=== PATIENT | female | born 1935 | race African-American/Black ===

== ENCOUNTER 2019-09-10 23:14 | Inpatient (IN) | payer BC ==
[~2019-09-10] VITALS: Ht 152.4 cm; Wt 58.1 kg
[2019-09-10 23:58] LABS: BASOPHILS % (AUTO) 0.1 % (0.0-2.0); EOSINOPHILS # (AUTO) 0.1 K/uL (0-0.4); EOSINOPHILS % (AUTO) 0.7 % (0.0-4.0); HEMATOCRIT 32.9 % (36-48); HEMOGLOBIN 10.1 g/dL (12.0-16.0); LYMPHOCYTES # (AUTO) 0.5 K/uL (2.5-16.5); MEAN CORPUSCULAR HEMOGLOBIN 23 pg (27-31); MEAN CORPUSCULAR HGB CONC 31 g/dL (33-37); MEAN CORPUSCULAR VOLUME 75.4 fL (80-94); MONOCYTES # (AUTO) 0.4 K/uL (0.8-1.0); MONOCYTES % (AUTO) 2.8 % (1.7-9.3); NEUTROPHILS # (AUTO) 13.7 K/uL (1.8-7.7); NEUTROPHILS % (AUTO) 92.9 % (42.2-75.2); PLATELET COUNT (AUTO) 366 K/uL (140-450); RED BLOOD CELL COUNT(AUTO) 4.36 MIL/uL (4.20-5.40); RED CELL DISTRIBUTION WIDTH 19.6 % (11.6-13.7); WHITE BLOOD COUNT (AUTO) 14.8 K/uL (4.8-10.8)
[2019-09-11] MEDS ORDERED: ONDANSETRON 4 MG ODT PO ONE (00:10)
[2019-09-11] MEDS ORDERED: HYDROcodone/APAP 5/325 MG 1 TAB TAB PO ONE (00:10)
[2019-09-11 00:13] LABS: ALBUMIN 1.9 g/dL (3.4-5.0); ANION GAP 10.9 (8-16); ASPARTATE AMINOTRANSFERASE 12 U/L (15-37); CARBON DIOXIDE 33.6 mmol/L (21-32); CHLORIDE 102 mmol/L (98-107); POTASSIUM 4.5 mmol/L (3.5-5.1); SODIUM SERUM 142 mmol/L (136-145); TOTAL BILIRUBIN 0.5 mg/dL (0.0-1.0); UREA NITROGEN, BLOOD 15 mg/dL (7-18)
[2019-09-11 00:15] LABS: LYMPHOCYTES % (AUTO) 3.5 % (20.5-51.1)
[2019-09-11 00:20] LABS: GLUCOSE 452 mg/dL (74-106)
[2019-09-11] MEDS ORDERED: INSULIN REGULAR, HUMAN 100 UNIT/ML VIAL IVP ONE (00:30)
[2019-09-11] MEDS ORDERED: MULT-153 PO (01:31)
[2019-09-11] MEDS ORDERED: FERR-252 PO (01:31)
[2019-09-11] MEDS ORDERED: ASPI-1822 PO (01:31)
[2019-09-11] MEDS ORDERED: LOVA20TA8 PO (01:31)
[2019-09-11] MEDS ORDERED: ONDANSETRON 4 MG/2 ML VIAL IVP PRN (01:35)
[2019-09-11] MEDS ORDERED: MORPHINE SULFATE 4 MG/ML SYR IVP PRN (01:35)
[2019-09-11] MEDS ORDERED: hydrALAZINE 20 MG/ML VIAL IVP PRN (01:40)
[2019-09-11] MEDS ORDERED: PRON INH (01:48)
[2019-09-11 02:50] VITALS: BP 122/65
[2019-09-11] MEDS ORDERED: PIPERACILLIN/TAZOBACTAM 2.25 GM VIAL IV ONE (03:20)
[2019-09-11] MEDS: PIPERACILLIN/TAZOBACTAM 2.25 GM in DEXTROSE 5% 50 ML IV SCH ×3 (03:38→21:47)
[2019-09-11 06:15] LABS: BASOPHILS % (AUTO) 0.1 % (0.0-2.0); EOSINOPHILS % (AUTO) 0.1 % (0.0-4.0); HEMATOCRIT 28.9 % (36-48); HEMOGLOBIN 8.7 g/dL (12.0-16.0); LYMPHOCYTES # (AUTO) 0.8 K/uL (2.5-16.5); LYMPHOCYTES % (AUTO) 6.7 % (20.5-51.1); MEAN CORPUSCULAR HEMOGLOBIN 23 pg (27-31); MEAN CORPUSCULAR HGB CONC 30 g/dL (33-37); MEAN CORPUSCULAR VOLUME 75.5 fL (80-94); MONOCYTES # (AUTO) 0.8 K/uL (0.8-1.0); MONOCYTES % (AUTO) 6.8 % (1.7-9.3); NEUTROPHILS # (AUTO) 9.7 K/uL (1.8-7.7); NEUTROPHILS % (AUTO) 86.3 % (42.2-75.2); PLATELET COUNT (AUTO) 283 K/uL (140-450); RED BLOOD CELL COUNT(AUTO) 3.83 MIL/uL (4.20-5.40); RED CELL DISTRIBUTION WIDTH 19.6 % (11.6-13.7); WHITE BLOOD COUNT (AUTO) 11.2 K/uL (4.8-10.8)
[2019-09-11 06:16] LABS: ANION GAP 8.2 (8-16); CARBON DIOXIDE 36.3 mmol/L (21-32); CHLORIDE 105 mmol/L (98-107); CREATININE 0.9 mg/dL (0.6-1.3); GLUCOSE 217 mg/dL (74-106); POTASSIUM 4.5 mmol/L (3.5-5.1); SODIUM SERUM 145 mmol/L (136-145); UREA NITROGEN, BLOOD 15 mg/dL (7-18)
[2019-09-11 06:20] LABS: PROTHROMBIN TIME 11.8 secs (10.8-13.4)
[2019-09-11 08:00] VITALS: BP 125/59
[2019-09-11] MEDS: FERROUS SULFATE 325 MG TABEC PO SCH (08:47)
[2019-09-11] MEDS: MULTIVITAMIN 1 TAB PO SCH (08:47)
[2019-09-11 12:00] VITALS: BP 128/63
[2019-09-11 16:00] VITALS: BP 120/57
[2019-09-11] MEDS: ACETAMINOPHEN 325 MG TAB PO PRN (18:36)
[2019-09-11 20:00] VITALS: BP 121/54
[2019-09-11] MEDS ORDERED: LOVASTATIN 20 MG PO SCH (21:00)
[2019-09-11] MEDS: SIMVASTATIN 10 MG TAB PO SCH (21:48)
[2019-09-12] VITALS: BP 127/60
[2019-09-12] MEDS: PIPERACILLIN/TAZOBACTAM 2.25 GM in DEXTROSE 5% 50 ML IV SCH ×3 (04:52→21:47)
[2019-09-12 05:44] VITALS: BP 169/63
[2019-09-12] MEDS: HYDROcodone/APAP 5/325 MG 1 TAB TAB PO PRN (05:51)
[2019-09-12 07:13] LABS: HEMATOCRIT 30.9 % (36-48); HEMOGLOBIN 9.3 g/dL (12.0-16.0); MEAN CORPUSCULAR HEMOGLOBIN 23 pg (27-31); MEAN CORPUSCULAR HGB CONC 30 g/dL (33-37); MEAN CORPUSCULAR VOLUME 76.8 fL (80-94); PLATELET COUNT (AUTO) 310 K/uL (140-450); RED BLOOD CELL COUNT(AUTO) 4.03 MIL/uL (4.20-5.40); RED CELL DISTRIBUTION WIDTH 20.1 % (11.6-13.7); WHITE BLOOD COUNT (AUTO) 11.3 K/uL (4.8-10.8)
[2019-09-12] MEDS: ALBUTEROL 0.083% 2.5 MG/3 ML NEBU INH PRN ×2 (07:28→14:16)
[2019-09-12 07:32] LABS: CREATININE 0.9 mg/dL (0.6-1.3); GLUCOSE 269 mg/dL (74-106); UREA NITROGEN, BLOOD 16 mg/dL (7-18)
[2019-09-12 07:39] LABS: MAGNESIUM 1.7 mg/dL (1.8-2.4); PHOSPHORUS 3.2 mg/dL (2.5-4.9)
[2019-09-12 07:54] LABS: ANION GAP 7.3 (8-16); CHLORIDE 101 mmol/L (98-107); POTASSIUM 4.3 mmol/L (3.5-5.1); SODIUM SERUM 141 mmol/L (136-145)
[2019-09-12 08:00] VITALS: BP 98/60
[2019-09-12 08:08] LABS: LYMPHOCYTES % (MANUAL) 5 % (20-46); MONOCYTES % (MANUAL) 5 % (5-12)
[2019-09-12 08:09] LABS: EOSINOPHILS % (MANUAL) 2 % (0-4)
[2019-09-12] MEDS: MULTIVITAMIN 1 TAB PO SCH (10:20)
[2019-09-12] MEDS: FERROUS SULFATE 325 MG TABEC PO SCH (10:20)
[2019-09-12 12:00] VITALS: BP 123/66
[2019-09-12] MEDS ORDERED: MAGNESIUM OXIDE 400 MG TAB PO SCH (12:00)
[2019-09-12 16:00] VITALS: BP 110/65
[2019-09-12 20:00] VITALS: BP 95/48
[2019-09-12] MEDS: SIMVASTATIN 10 MG TAB PO SCH (21:46)
[2019-09-13] VITALS: BP 105/58
[2019-09-13] MEDS: ACETAMINOPHEN 325 MG TAB PO PRN (01:40)
[2019-09-13 04:00] VITALS: BP 110/55
[2019-09-13] MEDS: PIPERACILLIN/TAZOBACTAM 2.25 GM in DEXTROSE 5% 50 ML IV SCH ×3 (05:34→20:45)
[2019-09-13 06:20] LABS: BASOPHILS % (AUTO) 0.4 % (0.0-2.0); EOSINOPHILS # (AUTO) 0.1 K/uL (0-0.4); EOSINOPHILS % (AUTO) 0.6 % (0.0-4.0); HEMATOCRIT 29.9 % (36-48); HEMOGLOBIN 9.1 g/dL (12.0-16.0); LYMPHOCYTES # (AUTO) 0.9 K/uL (2.5-16.5); MEAN CORPUSCULAR HEMOGLOBIN 23 pg (27-31); MEAN CORPUSCULAR HGB CONC 30 g/dL (33-37); MEAN CORPUSCULAR VOLUME 76.1 fL (80-94); MONOCYTES # (AUTO) 0.8 K/uL (0.8-1.0); MONOCYTES % (AUTO) 6.6 % (1.7-9.3); NEUTROPHILS # (AUTO) 9.6 K/uL (1.8-7.7); PLATELET COUNT (AUTO) 244 K/uL (140-450); RED BLOOD CELL COUNT(AUTO) 3.93 MIL/uL (4.20-5.40); RED CELL DISTRIBUTION WIDTH 19.5 % (11.6-13.7); WHITE BLOOD COUNT (AUTO) 11.3 K/uL (4.8-10.8)
[2019-09-13 06:44] LABS: CREATININE 0.9 mg/dL (0.6-1.3); GLUCOSE 284 mg/dL (74-106); UREA NITROGEN, BLOOD 12 mg/dL (7-18)
[2019-09-13 06:47] LABS: MAGNESIUM 1.9 mg/dL (1.8-2.4); PHOSPHORUS 2.8 mg/dL (2.5-4.9)
[2019-09-13 07:18] LABS: ANION GAP 11.7 (8-16); CARBON DIOXIDE 32.8 mmol/L (21-32); CHLORIDE 100 mmol/L (98-107); POTASSIUM 4.5 mmol/L (3.5-5.1); SODIUM SERUM 140 mmol/L (136-145)
[2019-09-13 07:36] LABS: NEUTROPHILS % (AUTO) 84.7 % (42.2-75.2)
[2019-09-13 07:37] LABS: LYMPHOCYTES % (AUTO) 7.7 % (20.5-51.1)
[2019-09-13 08:00] VITALS: BP 126/70
[2019-09-13] MEDS: FERROUS SULFATE 325 MG TABEC PO SCH (09:55)
[2019-09-13] MEDS: MULTIVITAMIN 1 TAB PO SCH (09:55)
[2019-09-13] MEDS: MAGNESIUM OXIDE 400 MG TAB PO SCH (09:56)
[2019-09-13 12:00] VITALS: BP 103/43
[2019-09-13 16:00] VITALS: BP 106/52
[2019-09-13 20:00] VITALS: BP 118/51
[2019-09-13] MEDS: SIMVASTATIN 10 MG TAB PO SCH (20:45)
[2019-09-14] VITALS: BP 131/59
[2019-09-14 04:00] VITALS: BP 118/48
[2019-09-14] MEDS: PIPERACILLIN/TAZOBACTAM 2.25 GM in DEXTROSE 5% 50 ML IV SCH ×3 (05:09→20:51)
[2019-09-14 06:58] LABS: ANION GAP 6.6 (8-16); CARBON DIOXIDE 37.5 mmol/L (21-32); CHLORIDE 100 mmol/L (98-107); CREATININE 0.9 mg/dL (0.6-1.3); GLUCOSE 192 mg/dL (74-106); POTASSIUM 4.1 mmol/L (3.5-5.1); SODIUM SERUM 140 mmol/L (136-145); UREA NITROGEN, BLOOD 10 mg/dL (7-18)
[2019-09-14 07:03] LABS: BASOPHILS % (AUTO) 0.4 % (0.0-2.0); EOSINOPHILS # (AUTO) 0.1 K/uL (0-0.4); HEMATOCRIT 27.6 % (36-48); HEMOGLOBIN 8.6 g/dL (12.0-16.0); LYMPHOCYTES # (AUTO) 0.7 K/uL (2.5-16.5); LYMPHOCYTES % (AUTO) 6.6 % (20.5-51.1); MEAN CORPUSCULAR HEMOGLOBIN 24 pg (27-31); MEAN CORPUSCULAR HGB CONC 31 g/dL (33-37); MEAN CORPUSCULAR VOLUME 75.5 fL (80-94); MONOCYTES # (AUTO) 0.5 K/uL (0.8-1.0); MONOCYTES % (AUTO) 4.5 % (1.7-9.3); NEUTROPHILS # (AUTO) 8.8 K/uL (1.8-7.7); NEUTROPHILS % (AUTO) 87.5 % (42.2-75.2); PLATELET COUNT (AUTO) 270 K/uL (140-450); RED BLOOD CELL COUNT(AUTO) 3.66 MIL/uL (4.20-5.40); RED CELL DISTRIBUTION WIDTH 19.6 % (11.6-13.7); WHITE BLOOD COUNT (AUTO) 10.1 K/uL (4.8-10.8)
[2019-09-14 07:05] LABS: MAGNESIUM 1.7 mg/dL (1.8-2.4); PHOSPHORUS 2.9 mg/dL (2.5-4.9)
[2019-09-14 08:00] VITALS: BP 148/74
[2019-09-14] MEDS: FERROUS SULFATE 325 MG TABEC PO SCH (09:25)
[2019-09-14] MEDS: MAGNESIUM OXIDE 400 MG TAB PO SCH (09:26)
[2019-09-14] MEDS: MULTIVITAMIN 1 TAB PO SCH (09:26)
[2019-09-14 12:00] VITALS: BP 156/53
[2019-09-14] MEDS: ACETAMINOPHEN 325 MG TAB PO PRN (14:55)
[2019-09-14 16:00] VITALS: BP 149/66
[2019-09-14 20:00] VITALS: BP 134/62
[2019-09-14] MEDS: SIMVASTATIN 10 MG TAB PO SCH (20:51)
[2019-09-15] VITALS: BP 126/78
[2019-09-15 04:00] VITALS: BP 140/80
[2019-09-15] MEDS: PIPERACILLIN/TAZOBACTAM 2.25 GM in DEXTROSE 5% 50 ML IV SCH ×2 (05:20→13:59)
[2019-09-15 06:13] LABS: BASOPHILS % (AUTO) 0.3 % (0.0-2.0); EOSINOPHILS # (AUTO) 0.1 K/uL (0-0.4); EOSINOPHILS % (AUTO) 1.4 % (0.0-4.0); HEMATOCRIT 27.5 % (36-48); HEMOGLOBIN 8.6 g/dL (12.0-16.0); LYMPHOCYTES # (AUTO) 0.6 K/uL (2.5-16.5); LYMPHOCYTES % (AUTO) 6.9 % (20.5-51.1); MAGNESIUM 1.8 mg/dL (1.8-2.4); MEAN CORPUSCULAR HEMOGLOBIN 24 pg (27-31); MEAN CORPUSCULAR HGB CONC 31 g/dL (33-37); MEAN CORPUSCULAR VOLUME 76.6 fL (80-94); MONOCYTES # (AUTO) 0.3 K/uL (0.8-1.0); NEUTROPHILS # (AUTO) 8.1 K/uL (1.8-7.7); NEUTROPHILS % (AUTO) 88.4 % (42.2-75.2); PHOSPHORUS 2.5 mg/dL (2.5-4.9); PLATELET COUNT (AUTO) 248 K/uL (140-450); RED BLOOD CELL COUNT(AUTO) 3.59 MIL/uL (4.20-5.40); RED CELL DISTRIBUTION WIDTH 19.4 % (11.6-13.7); WHITE BLOOD COUNT (AUTO) 9.2 K/uL (4.8-10.8)
[2019-09-15 06:32] LABS: ANION GAP 6.8 (8-16); CHLORIDE 100 mmol/L (98-107); CREATININE 0.7 mg/dL (0.6-1.3); GLUCOSE 200 mg/dL (74-106); POTASSIUM 3.8 mmol/L (3.5-5.1); SODIUM SERUM 141 mmol/L (136-145); UREA NITROGEN, BLOOD 9 mg/dL (7-18)
[2019-09-15 08:00] VITALS: BP 136/67
[2019-09-15] MEDS: FERROUS SULFATE 325 MG TABEC PO SCH (08:06)
[2019-09-15] MEDS: MAGNESIUM OXIDE 400 MG TAB PO SCH (08:06)
[2019-09-15] MEDS: MULTIVITAMIN 1 TAB PO SCH (08:06)
[2019-09-15] MEDS ORDERED: fentaNYL 0.05 MG/ML VIAL ONE (11:55)
[2019-09-15] MEDS ORDERED: MIDAZOLAM 2 MG/2 ML VIAL ONE (11:55)
[2019-09-15 12:00] VITALS: BP 149/79
[2019-09-15] MEDS ORDERED: LACTATED RINGERS 1,000 ML IV SCH (12:07)
[2019-09-15] MEDS ORDERED: ONDANSETRON 4 MG/2 ML VIAL IVP PRN (12:10)
[2019-09-15] MEDS ORDERED: BLOOD GLUCOSE MONITORING 1 DEV DEV FS SCH (12:10)
[2019-09-15] MEDS ORDERED: diphenhydrAMINE 50 MG/ML VIAL IVP PRN (12:10)
[2019-09-15] MEDS ORDERED: HYDROmorphone 1 MG/ML AMP IVP PRN (12:10)
[2019-09-15] MEDS ORDERED: BUPIVACAINE MPF 0.25% 10 ML VIAL INJ ONE (12:40)
[2019-09-15] MEDS: HYDROcodone/APAP 5/325 MG 1 TAB TAB PO PRN (13:58)
[2019-09-15] MEDS ORDERED: PNEUMOCOCCAL VACCINE 23 MCG/0.5 ML VIAL IMVAC SCH (15:45)
[2019-09-15 15:56] VITALS: BP 112/53
== END 2019-09-15 18:15 | disposition home health service (06) | DRG 180 ==
LOC: MED 23:14 → MTU 09-11 01:33
PROVIDERS: ADMIT Hospitalist; ATTEND Hospitalist
PROC: 0W9B3ZZ Drainage of Left Pleural Cavity, Percutaneous Approach (ICD-10-PCS; 2019-09-11)
PROC: 0W9B30Z Drainage of Left Pleural Cavity with Drainage Device, Percutaneous Approach (ICD-10-PCS; 2019-09-15)
PROC: 3E0234Z Introduction of Serum, Toxoid and Vaccine into Muscle, Percutaneous Approach (ICD-10-PCS; principal; 2019-09-15 13:00)
DX: C34.90 Malignant neoplasm of unspecified part of unspecified bronchus or lung (principal); J96.01 Acute respiratory failure with hypoxia; E43 Unspecified severe protein-calorie malnutrition; J91.0 Malignant pleural effusion; J93.9 Pneumothorax, unspecified; I11.0 Hypertensive heart disease with heart failure; Z23 Encounter for immunization; Z68.25 Body mass index [BMI] 25.0-25.9, adult; E78.5 Hyperlipidemia, unspecified; Z87.891 Personal history of nicotine dependence; E78.00 Pure hypercholesterolemia, unspecified; I50.9 Heart failure, unspecified
CPT/HCPCS: 36415; 71045; 71275; 76604; 76942; 80048; 80053; 82948; 83735; 83880; 84100; 84484; 85025; 85610; 85730; 87081; 90732; 94640; 96374; 97112; 97116; 97161-GP; 99285; J1815; J2001; J2250; J2543; J3010; J3490; J7030; J7060; J7613; Q0092; Q0162; Q9967